=== PATIENT | female | born 1990 | race Two or more races ===

== ENCOUNTER 2020-10-23 22:05 | Outpatient (CLI) | payer OTHER ==
[2020-10-23] MEDS ORDERED: PRENATAL TABLE1 EAC1 PO (22:29)
[2020-10-23] MEDS ORDERED: CHILDREN'S ASPI81 MG PO (22:29)
[2020-10-23] MEDS ORDERED: FOLIC ACID0.8 M1 PO (22:29)
== END 2020-10-24 09:57 | disposition home or self-care (01) ==
LOC: OBS/DEL 22:05
PROVIDERS: ATTEND Obstetrics & Gynecology
DX: O60.03 Preterm labor without delivery, third trimester (principal); Z20.828 Contact with and (suspected) exposure to other viral communicable diseases

== ENCOUNTER 2020-11-22 12:00 | Inpatient (IN) | payer OTHER ==
[~2020-11-22] VITALS: Ht 160 cm; Wt 62.1 kg
[~2020-11-22 12:00] MED LIST: CHILDREN'S ASPI81 MG PO; FOLIC ACID0.8 M1 PO; PRENATAL TABLE1 EAC1 PO
== END 2020-11-28 09:55 | disposition home or self-care (01) | DRG 807 ==
LOC: LDR 11-26 04:32 → OB/GYN 11-26 04:32
PROVIDERS: ADMIT Obstetrics & Gynecology; ATTEND Obstetrics & Gynecology
PROC: 10E0XZZ Delivery of Products of Conception, External Approach (ICD-10-PCS; principal; 2020-11-26)
PROC: 0HQ9XZZ Repair Perineum Skin, External Approach (ICD-10-PCS; 2020-11-26)
PROC: 10907ZC Drainage of Amniotic Fluid, Therapeutic from Products of Conception, Via Natural or Artificial Opening (ICD-10-PCS; 2020-11-26)
PROC: 3E033VJ Introduction of Other Hormone into Peripheral Vein, Percutaneous Approach (ICD-10-PCS; 2020-11-26)
PROC: 4A1HXFZ Monitoring of Products of Conception, Cardiac Rhythm, External Approach (ICD-10-PCS; 2020-11-26)
DX: O70.0 First degree perineal laceration during delivery (principal); Z37.0 Single live birth; O99.824 Streptococcus B carrier state complicating childbirth; Z3A.40 40 weeks gestation of pregnancy